=== PATIENT | male | born 1980 | race Caucasian/White ===

== ENCOUNTER 2016-08-16 01:05 | Outpatient (CLI) ==
[2016-08-16 01:22] VITALS: BMI 15.6
== END 2016-08-16 01:06 | disposition home or self-care (01) ==
LOC: AMBL 01:05
PROVIDERS: ATTEND Emergency Medicine
DX: R10.9 Unspecified abdominal pain (principal); R11.10 Vomiting, unspecified; K35.80 Unspecified acute appendicitis

== ENCOUNTER 2016-08-16 01:14 | Emergency (ER) ==
[2016-08-16] MEDS ORDERED: SODIUM CHLORIDE 1,000 ML IV STA ×3 (01:16→01:17)
[2016-08-16 01:22] VITALS: BP 163/105; TEMP 97.7; BMI 15.6
[2016-08-16] MEDS ORDERED: PHENERGAN 25 MG/ML VIAL 25 MG in SODIUM CHLORIDE 50 ML IV STA (01:22)
[2016-08-16 01:37] LABS: BASOPHILS # (AUTO) 0.1 K/uL (0-0.2); BASOPHILS % (AUTO) 0.7 % (0.0-3.0); HEMATOCRIT 34.1 % (42.0-52.0); HEMOGLOBIN 11.5 g/dl (14.0-18.0); IMMATURE GRANULOCYTE % (AUTO) 0.9 % (0.0-5.0); LYMPHOCYTES # (AUTO) 1.1 K/uL (0.60-3.4); LYMPHOCYTES % (AUTO) 10.4 (10.0-50.0); MEAN CORPUSCULAR HEMOGLOBIN 27.6 pg (27.0-31.0); MEAN CORPUSCULAR HGB CONC 33.7 (31.8-35.4); MONOCYTES # (AUTO) 0.6 K/uL (0.4-2.0); MONOCYTES % (AUTO) 6.2 (0-10); NEUTROPHILS # (AUTO) 8.3 K/ul (2.0-6.9); NEUTROPHILS % (AUTO) 81.8; PLATELET COUNT 248 10^3/uL (140-440); RED BLOOD COUNT 4.16 10^6/ul (4.70-6.10); WHITE BLOOD COUNT 10.17 K/ul (4.2-10.2)
[2016-08-16] MEDS ORDERED: PHENERGAN 25 MG/ML VIAL ONE (01:54)
[2016-08-16 02:03] LABS: ALANINE AMINOTRANSFERASE 12 U/L (12-78); ALBUMIN 4.2 g/dL (3.4-5.0); ALBUMIN/GLOBULIN RATIO 1.14; ALKALINE PHOSPHATASE 95 U/L (50-136); AMYLASE 36 U/L (25-115); ANION GAP 15.7; ASPARTATE AMINO TRANSFERASE 19 U/L (15-37); BLOOD UREA NITROGEN 25 mg/dL (7-18); BUN/CREATININE RATIO 29.76; CALCIUM 9.7 mg/dL (8.2-10.2); CARBON DIOXIDE 26 mmol/L (21-32); CHLORIDE 102 mmol/L (98-107); CREATINE KINASE 83 U/L; CREATININE 0.84 mg/dL (0.60-1.10); GLUCOSE 129 mg/dL (70-100); POTASSIUM 3.7 mmol/L (3.5-5.1); SODIUM 140 mmol/L (136-145); TOTAL PROTEIN 7.9 g/dL (6.4-8.2)
[2016-08-16 02:04] LABS: LIPASE 5 U/L (8-78)
[2016-08-16 02:06] LABS: ERYTHROCYTE SEDIMENTATION RATE 41 mm/hr (0-15); ESR INTERNAL QC INTERNAL QC VALID
[2016-08-16 02:19] LABS: FLU INTERNAL QC INTERNAL QC VALID; RAPID FLU A NEGATIVE (NEGATIVE); RAPID FLU B NEGATIVE (NEGATIVE)
--- NOTE | 2016-08-16 03:02 | CT ---
EXAM: CT abdomen pelvis without and with intravenous contrast 08/16/2016. Sagittal and coronal ref ormatted images obtained HISTORY: Abdominal pain and vomiting COMPARISON: None. FINDINGS: Diffuse hepatic steatosis. The liver, gallbladder, adrenal glands and kidneys show no ac sonny abnormality. The spleen and pancreas show no acute process. There is no evidence of bowel obstruction. The appendix is dilated up to approximately 9 mm diameter. Appendix is best seen on coronal series image 26. There is prominent mucosal enhancement with surrounding stranding / edema. The appendix is fluid-filled. This is most compatible with acute appendicitis. Unremarkable urinary bladder. There is no free air or free fluid. Fluid-filled distal small bowel likely relates to ileus. IMPRESSION: Findings most compatible with acute appendicitis as discussed above. Critical FINDINGS: I personally discussed these findings with Dr. Osei, 08/16/2016, 2:57 a.m
--- NOTE | 2016-08-16 03:05 | ED.PDOC ---
General ED Provider: Dr. SALOMÓN PEARSON-ER Chief Complaint: Abdominal Pain Stated Complaint: im throwingup and my belly hurts Time Seen by Physician: 01:20 Mode of Arrival: Ambulance Information Source: Patient Exam Limitations: No limitations Primary Care Provider: MARIAM ESCAMILLA Nursing and Triage Documentation Reviewed and Agree: Yes GI Complaint Exam - Abdominal Pain Complaint/Exam Onset: Gradual Duration: a few hours Symptoms Are: Still present Timing: Constant Initial Severity: Mild Current Severity: Moderate Location of Pain: Diffuse Character: Reports: Dull, Aching Aggravating: Reports: None Alleviating: Reports: None Associated Signs and Symptoms: Reports: Nausea, Vomiting. Denies: Diaphoresis, Fever, Cough, Chest pain, Dizziness, Back pain, Constipation, Blood in stool, Dysuria, Urinary frequency, Decreased urine output, Decreased appetite, Discharge AAA Risk Factors: Reports: None Cardiac Risk Factors: Reports: None Testicular Torsion Risk Factors: Reports: None Surgical Obstruction Risk Factors: Reports: None Related Surgical History: Reports: None Differential Diagnoses: Appendicitis, Bowel Obstruction, Constipation, Pancreatitis Quality Indicator For Non-Traumatic Chest Pain/Syncope: EKG Performed Review of Systems - Review Of Systems Constitutional: Reports: No symptoms Eyes: Reports: No symptoms Ears, Nose, Mouth, Throat: Reports: No symptoms Respiratory: Reports: No symptoms Cardiac: Reports: No symptoms GI: Reports: Abdominal pain, Nausea, Vomiting : Reports: No symptoms Musculoskeletal: Reports: No symptoms Skin: Reports: No symptoms Neurological: Reports: No symptoms Endocrine: Reports: No symptoms Hematologic/Lymphatic: Reports: No symptoms All Other Systems: Reviewed and Negative Past Medical History - Past Medical History Previously Healthy: Yes Endocrine: Reports: None, Hyperthyroid (OLD RECORD) Cardiovascular: Reports: None Respiratory: Reports: None Hematological: Reports: None Gastrointestinal: Reports: None Genitourinary: Reports: None, Other (OLD RECORD) Neuro/Psych: Reports: None, Anxiety (OLD RECORD), Depression (OLD RECORD) Musculoskeletal: Reports: None Cancer: Reports: None - Surgical History General Surgical History: Reports: Orthopedic (hand surgery), Unknown - Family History Family History: Reports: Unknown - Social History Smoking Status: Former smoker, Vaping Hx Substance Use: Yes (clean 3 years) Alcohol Screening: None Lives: With family - Immunizations Tetanus Shot up to Date: Yes Physical Exam - Physical Exam Appearance: Well-appearing, No pain distress, Well-nourished Pain Distress: Moderate Eyes: JANE, EOMI, Conjunctiva clear ENT: Ears normal, Nose normal, Oropharynx normal Neck: Supple Respiratory: Airway patent, Breath sounds clear, Breath sounds equal, Respirations nonlabored Cardiovascular: RRR, Tachycardia GI/: Soft, Tender Musculoskeletal: Normal strength, ROM intact, No edema, No calf tenderness Skin: Warm, Dry, Normal color Neurological: Sensation intact Psychiatric: Affect appropriate, Mood appropriate Interpretation - Radiology Interpretation Radiology Interpretation By: Radiologist Radiology Results: Positive Exam Interpreted: CT Scan Xray Comments: "findings compatible with acute appendicitis" - EKG Interpretation Time of EKG #1: 03:05 Rate: Normal Rhythm: Sinus Ectopy: None [place]: NL ST Segment: Normal Physician Notification - Case Discussed Physician Notified: dr post Time of Notification: 03:45 Critical Care Note - Critical Care Note Total Time (mins): 0 Course - Course Hematology/Chemistry: 08/16/16 01:35 08/16/16 01:35 Orders, Labs, Meds: Lab Review 08/16/16 08/16/16 08/16/16 01:30 01:35 03:25 WBC 10.17 RBC 4.16 L Hgb 11.5 L Hct 34.1 L MCV 82.0 MCH 27.6 MCHC 33.7 RDW Coeff of Dilma 14.2 Plt Count 248 Immature Gran % (Auto) 0.9 Neut % (Auto) 81.8 Lymph % (Auto) 10.4 [place] % (Auto) 6.2 Eos % (Auto) 0.0 Baso % (Auto) 0.7 Immature Gran # (Auto) 0.1 Neut # 8.3 H Lymph # 1.1 [place] # 0.6 Eos # 0.0 Baso # 0.1 ESR 41 H Sodium 140 Potassium 3.7 Chloride 102 Carbon Dioxide 26 Anion Gap 15.7 BUN 25 H Creatinine 0.84 Estimated GFR (MDRD) 103.00 BUN/Creatinine Ratio 29.76 Glucose 129 H Calcium 9.7 Total Bilirubin 1.40 H AST 19 ALT 12 Alkaline Phosphatase 95 Total Creatine Kinase 83 Troponin I < 0.0100 Total Protein 7.9 Albumin 4.2 Globulin 3.7 Albumin/Globulin Ratio 1.14 Amylase 36 Lipase 5 L Urine Color Yellow Urine Clarity Cloudy Urine pH 8.5 Ur Specific Winder 1.015 Urine Protein Trace Urine Glucose (UA) Negative Urine Ketones 2+ Urine Blood Negative Urine Nitrite Negative Urine Bilirubin 1+ Urine Urobilinogen 1.0 Ur Leukocyte Esterase Negative Ur Squamous Epith Cells Not present Amorphous Sediment 1+ Urine Bacteria 1+ Urine Yeast Trace Influenza A (Rapid) Negative Influenza B (Rapid) Negative Orders Category Date Time Status EKG-(ED ONLY) Stat CARDIO 08/16/16 01:15 Completed NPO REMINDER: IMAGING ONCE CARE 08/16/16 01:17 Completed IV [ED IV/MEDIPORT/POWERPORT] .ONCE EMERGENCY 08/16/16 01:16 Active AMYLASE Stat LAB 08/16/16 01:35 Completed CBC W/ AUTO DIFF Stat LAB 08/16/16 01:35 Completed COMPREHENSIVE METABOLIC PANEL Stat LAB 08/16/16 01:35 Completed CREATINE KINASE Stat LAB 08/16/16 01:35 Completed ESR Stat LAB 08/16/16 01:35 Completed LIPASE Stat LAB 08/16/16 01:35 Completed MOLECULAR GROUP A STREP Stat LAB 08/16/16 01:30 Results RAPID FLU A/B Stat LAB 08/16/16 01:30 Completed STREP SCREEN Stat LAB 08/16/16 01:30 Results TROPONIN I Stat LAB 08/16/16 01:35 Completed URINALYSIS C & S IF INDICATED Stat LAB 08/16/16 03:25 Completed URINE CULTURE Routine LAB 08/16/16 03:39 Received 0.9 % Sodium Chloride [Saline Flush] MEDS 08/16/16 01:16 Ordered 1 syr IVF PRN PRN Promethazine HCl [Phenergan 25 mg/ml Vial] MEDS 08/16/16 01:54 Discontinued 25 mg .ROUTE .STK-MED ONE Promethazine HCl [Phenergan 25 mg/ml Vial] 25 mg MEDS 08/16/16 01:22 Discontinued 0.9 % Sodium Chloride [Sodium Chloride] 50 ml IV ONCE Sodium Chloride 0.9% [Sodium Chloride] 1,000 ml MEDS 08/16/16 01:17 Active IV 100 mls/hr Sodium Chloride 0.9% [Sodium Chloride] 1,000 ml MEDS 08/16/16 01:16 Discontinued IV BOLUS Sodium Chloride 0.9% [Sodium Chloride] 1,000 ml MEDS 08/16/16 01:[address] ABDOMEN/PELVIS W/WO CONTRAS Stat RADS 08/16/16 01:17 Completed Medications Generic Name Dose Route Start Last Admin Trade Name Freq PRN Reason Stop Dose Admin Sodium Chloride 1,000 mls @ 100 mls/hr 08/16/16 01:17 Sodium Chloride IV 08/16/16 11:16 .Q10H STA Sodium Chloride 1 syr 08/16/16 01:16 08/16/16 02:00 Saline Flush IVF 1 syr PRN PRN Administration To flush IV Discontinued Medications Generic Name Dose Route Start Last Admin Trade Name Freq PRN Reason Stop Dose Admin Sodium Chloride 1,000 mls @ 1,000 mls/hr 08/16/16 01:16 08/16/16 01:57 Sodium Chloride IV 08/16/16 02:15 1,000 mls/hr BOLUS STA Administration Sodium Chloride 1,000 mls @ 1,000 mls/hr 08/16/16 01:16 Sodium Chloride IV 08/16/16 02:15 BOLUS STA Promethazine HCl 25 mg/ Sodium 51 mls @ 75 mls/hr 08/16/16 01:22 08/16/16 01: 57 Chloride IV 08/16/16 02:02 75 mls/hr ONCE STA Administration Vital Signs: Temp Pulse Resp BP Pulse Ox 08/16/16 01:15 97.7 F 73 16 163/105 H 99 Departure - Departure Time of Disposition: 03:45 Disposition: TSF SHORT-TRM HOSP Discharge Problem: Appendicitis Qualifiers: Appendicitis type: acute appendicitis Acute appendicitis type: unspecified acute appendicitis type Qualifier Code: (K35.80) Unspecified acute appendicitis Instructions: Abdominal Pain (ED) Condition: Good Pt referred to PMD for follow-up: No Allergies/Adverse Reactions: Allergies No Known Allergies Allergy (Verified 12/05/15 17:49) Home Medications: Ambulatory Orders Clonazepam [Klonopin] 1 mg PO TID 12/07/12 Fluoxetine HCl [Prozac] 40 mg PO DAILY 12/07/12 Buprenorphine HCl/Naloxone HCl [Suboxone 8 mg-2 mg Sl Film] 16 mg PO DAILY 12/04 Transfer Form Completed: Yes Disposition Discussed With: Patient, Family
[2016-08-16 03:31] LABS: BILIRUBIN,URINE 1+ (NEGATIVE); KETONES,URINE 2+ (NEGATIVE); LEUKOCYTE ESTERASE ,URINE Negative (NEGATIVE); NITRITE,URINE Negative (NEGATIVE); PH,URINE 8.5 (5-9); PROTEIN,URINE Trace (NEGATIVE); URINE, BLOOD Negative (NEGATIVE)
[2016-08-16 03:38] LABS: ADD URINE MICROSCOPIC YES
[2016-08-16 03:39] LABS: BACTERIA,URINE 1+ (NOT PRESENT)
[2016-08-16] MEDS ORDERED: ZOFRAN 4 MG/2 ML IVP STA (03:47)
== END 2016-08-16 04:14 | disposition short-term general hospital (02) ==
LOC: ED 01:14
DX: K35.80 Unspecified acute appendicitis (principal)
CPT/HCPCS: 36415; 80053; 81001; 82150; 82550; 83690; 84484; 85025; 85651; 87086; 87651; 87804; 87880; 93005; 93010; 96361; 96365; 96375; 99285

== ENCOUNTER 2016-08-22 16:42 | Emergency (ER) ==
[2016-08-22 16:55] VITALS: BP 112/71; TEMP 98.1; BMI 14.8
--- NOTE | 2016-08-22 17:03 | ED.PDOC ---
General ED Provider: Dr. LORI LAWSON Chief Complaint: Abdominal Pain Stated Complaint: Patient had surgery at [facility] 08-15-16, he is not feeling good, minimal bowel ovements. hurting more now. Time Seen by Physician: 17:01 Mode of Arrival: Walk-In Information Source: Patient Primary Care Provider: MARIAM ESCAMILLA Nursing and Triage Documentation Reviewed and Agree: Yes GI Complaint Exam - Abdominal Pain Complaint/Exam Onset: Gradual Symptoms Are: Still present Timing: Constant Initial Severity: Moderate Current Severity: Moderate Location of Pain: Discrete Character: Reports: Dull, Aching Aggravating: Reports: Movement Alleviating: Reports: None Associated Signs and Symptoms: Reports: Decreased appetite, Nausea. Denies: Diaphoresis, Fever, Cough, Chest pain, Dizziness, Back pain, Constipation, Blood in stool, Dysuria, Urinary frequency, Decreased urine output, Discharge, Vomiting, Diarrhea, Decreased activity AAA Risk Factors: Reports: None Cardiac Risk Factors: Reports: None Testicular Torsion Risk Factors: Reports: None Surgical Obstruction Risk Factors: Reports: None Related Surgical History: Reports: Appendectomy (08-15-16) Abdominal Findings: Absent: Pulsatile mass, Abdominal distention Differential Diagnoses: Bowel Obstruction, Constipation Review of Systems - Review Of Systems Constitutional: Reports: Malaise, Weakness Eyes: Reports: No symptoms Ears, Nose, Mouth, Throat: Reports: No symptoms Respiratory: Reports: No symptoms Cardiac: Reports: No symptoms GI: Reports: Abdominal pain : Reports: No symptoms Musculoskeletal: Reports: No symptoms Skin: Reports: No symptoms Neurological: Reports: No symptoms Endocrine: Reports: No symptoms Hematologic/Lymphatic: Reports: No symptoms All Other Systems: Reviewed and Negative Past Medical History - Past Medical History Previously Healthy: Yes Endocrine: Reports: None, Hyperthyroid (OLD RECORD) Cardiovascular: Reports: None Respiratory: Reports: None Hematological: Reports: None Gastrointestinal: Reports: None Genitourinary: Reports: None, Other (OLD RECORD) Neuro/Psych: Reports: None, Anxiety (OLD RECORD), Depression (OLD RECORD) Musculoskeletal: Reports: None Cancer: Reports: None - Surgical History General Surgical History: Reports: Appendectomy (08-15-16 [facility]), Orthopedic (hand surgery), Unknown - Family History Family History: Reports: Unknown - Social History Smoking Status: Former smoker, Vaping Hx Substance Use: Yes (clean 3 years) Alcohol Screening: None Physical Exam - Physical Exam Appearance: Ill-appearing, Thin Eyes: JANE, EOMI, Conjunctiva clear ENT: Ears normal, Nose normal, Oropharynx normal Respiratory: Airway patent, Breath sounds clear, Breath sounds equal, Respirations nonlabored Cardiovascular: RRR, Pulses normal, No rub, No murmur GI/: Soft, Tender, Bowel sounds hypoactive Musculoskeletal: Normal strength, ROM intact, No edema, No calf tenderness Skin: Warm, Dry, Normal color Neurological: Sensation intact, Motor intact, Reflexes intact, Cranial nerves intact, Alert, Oriented Psychiatric: Affect appropriate, Mood appropriate Interpretation - Radiology Interpretation Radiology Interpretation By: Radiologist Radiology Results: Positive Exam Interpreted: CT Scan Physician Notification - Case Discussed Time of Notification: 18:46 (DR ZAMUDIO) Critical Care Note - Critical Care Note Total Time (mins): 0 Course - Course Hematology/Chemistry: 08/22/16 17:10 08/22/16 17:10 Orders, Labs, Meds: Lab Review 08/22/16 17:10 WBC 14.83 H RBC 2.96 L Hgb 8.4 L Hct 24.6 L MCV 83.1 MCH 28.4 MCHC 34.1 RDW Coeff of Dilma 13.8 Plt Count 332 Immature Gran % (Auto) 0.7 Neut % (Auto) 83.0 Lymph % (Auto) 6.3 L [place] % (Auto) 9.6 Eos % (Auto) 0.3 Baso % (Auto) 0.1 Immature Gran # (Auto) 0.1 Neut # 12.3 H Lymph # 0.9 [place] # 1.4 Eos # 0.0 Baso # 0.0 Sodium 137 Potassium 4.1 Chloride 99 Carbon Dioxide 27 Anion Gap 15.1 BUN 19 H Creatinine 0.71 Estimated GFR (MDRD) 126.00 BUN/Creatinine Ratio 26.76 Glucose 161 H Calcium 9.0 Total Bilirubin 1.86 H AST 13 L ALT 9 L Alkaline Phosphatase 77 Total Protein 7.0 Albumin 3.0 L Globulin 4.0 Albumin/Globulin Ratio 0.75 Amylase 23 L Lipase 8 Orders Category Date Time Status ED IV/MEDIPORT/POWERPORT .ONCE EMERGENCY 08/22/16 17:38 Active AMYLASE Stat LAB 08/22/16 17:10 Completed CBC W/ AUTO DIFF Stat LAB 08/22/16 17:10 Completed COMPREHENSIVE METABOLIC PANEL Stat LAB 08/22/16 17:10 Completed LIPASE Stat LAB 08/22/16 17:10 Completed 0.9 % Sodium Chloride [Saline Flush] MEDS 08/22/16 17:38 Ordered 1 syr IVF PRN PRN Meperidine HCl/Pf [Demerol 25 mg/ml Syringe] MEDS 08/22/16 17:41 Discontinued 25 mg IVP ONCE STA Ondansetron HCl/Pf [Zofran 4 mg/2 ml] MEDS 08/22/16 17:41 Discontinued 4 mg IVP ONCE STA Piperacillin Sodium/Tazobactam [Zosyn 3.375 gm] 3.375 MEDS 08/22/16 17:38 Discontinued gm 0.9 % Sodium Chloride [Sodium Chloride] [address] ABDOMEN/PELVIS WO CONTRAST Stat RADS 08/22/16 16:58 Completed Medications Generic Name Dose Route Start Last Admin Trade Name Freq PRN Reason Stop Dose Admin Sodium Chloride 1 syr 08/22/16 17:38 08/22/16 18:12 Saline Flush IVF 1 syr PRN PRN Administration To flush IV Discontinued Medications Generic Name Dose Route Start Last Admin Trade Name Freq PRN Reason Stop Dose Admin Piperacillin Sod/Tazobactam 100 mls @ 100 mls/hr 08/22/16 17:38 08/22/16 18: 14 Sod 3.375 gm/ Sodium Chloride IV 08/22/16 18:37 100 mls/hr ONCE STA Administration Meperidine HCl 25 mg 08/22/16 17:41 08/22/16 18:09 Demerol 25 Mg/Ml Syringe IVP 08/22/16 17:42 25 mg ONCE STA Administration Ondansetron HCl 4 mg 08/22/16 17:41 08/22/16 18:11 Zofran 4 Mg/2 Ml IVP 08/22/16 17:42 4 mg ONCE STA Administration Vital Signs: Temp Pulse Resp BP Pulse Ox 08/22/16 16:43 98.1 F 101 H 20 112/71 94 L Departure - Departure Time of Disposition: 18:46 Disposition: TSF OTHER Discharge Problem: Post-op pain Postoperative intra-abdominal abscess Qualifiers: Encounter type: initial encounter Qualifier Code: (T81.4XXA) Infection following a procedure, initial encounter Discharge Problem: (Ruled Out): Anemia Instructions: Abdominal Pain (ED) Condition: Stable Pt referred to PMD for follow-up: Yes Additional Instructions: INCREASE HYDRATION FREQUENT SMALL MEALS KEEP F/U WITH SURGEON SCHEDULED. Prescriptions: Ondansetron HCl [Zofran] 4 mg PO TID #14 tablet Allergies/Adverse Reactions: Allergies No Known Allergies Allergy (Verified 08/22/16 16:51) Home Medications: Ambulatory Orders Clonazepam [Klonopin] 1 mg PO TID 12/07/12 Fluoxetine HCl [Prozac] 40 mg PO DAILY 12/07/12 Buprenorphine HCl/Naloxone HCl [Suboxone 8 mg-2 mg Sl Film] 16 mg PO DAILY 12/04 Ketorolac Tromethamine [Toradol] 10 mg PO Q6HR PRN 08/22/16 Ondansetron HCl [Zofran] 4 mg PO TID #14 tablet 08/22/16 Transfer Form Completed: Yes Disposition Discussed With: Patient
[2016-08-22 17:24] LABS: BASOPHILS % (AUTO) 0.1 % (0.0-3.0); EOSINOPHILS % (AUTO) 0.3 % (0.0-7.0); HEMATOCRIT 24.6 % (42.0-52.0); HEMOGLOBIN 8.4 g/dl (14.0-18.0); IMMATURE GRANULOCYTE % (AUTO) 0.7 % (0.0-5.0); LYMPHOCYTES # (AUTO) 0.9 K/uL (0.60-3.4); LYMPHOCYTES % (AUTO) 6.3 (10.0-50.0); MEAN CORPUSCULAR HEMOGLOBIN 28.4 pg (27.0-31.0); MEAN CORPUSCULAR HGB CONC 34.1 (31.8-35.4); MEAN CORPUSCULAR VOLUME 83.1 fl (80.0-94.0); MONOCYTES # (AUTO) 1.4 K/uL (0.4-2.0); MONOCYTES % (AUTO) 9.6 (0-10); NEUTROPHILS # (AUTO) 12.3 K/ul (2.0-6.9); PLATELET COUNT 332 10^3/uL (140-440); RED BLOOD COUNT 2.96 10^6/ul (4.70-6.10); WHITE BLOOD COUNT 14.83 K/ul (4.2-10.2)
--- NOTE | 2016-08-22 17:31 | CT ---
EXAM: Noncontrast CT of the abdomen and pelvis. HISTORY: Post appendectomy. Abdominal pain. COMPARISON: 08/16/2016 TECHNIQUE: Contiguous axial images at 3 mm intervals were obtained from lung bases through the pelv is. No contrast was given. Coronal reformats were reviewed. FINDINGS: The study is limited without contrast. CHEST: The lung bases show no lobar consolidation or effusion. The heart size is within normal schwartz its. ABDOMEN: Evaluation of the soft tissue organs is limited without contrast. LIVER: Noncontrast images of the liver show no solid mass lesion or intrahepatic ductal dilatation. BILIARY: The gallbladder is normally distended. No gallstones are noted. No pericholecystic fluid or inflammation. The common bile duct is normal. SPLEEN: The spleen is unremarkable. PANCREAS: The pancreas shows no mass lesion or peripancreatic inflammation. ADRENAL GLANDS: The adrenal glands are normal. RENAL: The kidneys show no hydronephrosis or nephrolithiasis. There are no obstructing ureteral st ones. No solid mass lesions are identified. RETROPERITONEUM: The aorta is unopacified. No aneurysm is identified. No aortic calcifications ar e seen. There is no retroperitoneal or mesenteric adenopathy. BOWEL: There are postoperative changes of an appendectomy. There are clips in the right lower quadr ant. There is fluid density extending from the right lower quadrant into the pelvis. There is a sm all anterior fluid collection measuring eight point a by 3.0 cm. There is a second larger fluid col lection posteriorly measuring 10.6 x 11.0 cm. These may be connected. Evaluation is limited withou t IV and enteric contrast. This fluid collection displaces the rectum posteriorly. The fluid densi ty is intermediate. PELVIS: BLADDER: The bladder is well distended. The bladder is displaced anteriorly.. GENITOURINARY STRUCTURES: The prostate is unremarkable. OSSEOUS STRUCTURES: The osseous structures are normal for age. IMPRESSION 1. Limited study without contrast. 2. Post appendectomy. There is a fluid collection is seen in the right lower quadrant into the pel vis. The fluid collection measures up to 11 cm with intermediate density. Findings are consistent with abscess. Postoperative fluid collection and/or blood cannot be excluded. Evaluation is limited without contrast. Recommend CT with IV and water soluble rectal contrast.
[2016-08-22 17:39] LABS: ALBUMIN/GLOBULIN RATIO 0.75; ANION GAP 15.1; BILIRUBIN,TOTAL 1.86 mg/dL (0.00-1.20); BUN/CREATININE RATIO 26.76; CREATININE 0.71 mg/dL (0.60-1.10); POTASSIUM 4.1 mmol/L (3.5-5.1)
[2016-08-22] MEDS: DEMEROL 25 MG/ML SYRINGE IVP STA (18:09)
[2016-08-22] MEDS: ZOFRAN 4 MG/2 ML IVP STA (18:11)
[2016-08-22] MEDS: ZOSYN 3.375 GM 3.375 GM in SODIUM CHLORIDE 100 ML IV STA (18:14)
== END 2016-08-22 19:25 | disposition short-term general hospital (02) ==
LOC: ED 16:42
DX: T81.4XXA Infection following a procedure, initial encounter (principal); G89.18 Other acute postprocedural pain; R10.9 Unspecified abdominal pain; Z90.89 Acquired absence of other organs; Z79.899 Other long term (current) drug therapy; F17.290 Nicotine dependence, other tobacco product, uncomplicated
CPT/HCPCS: 36415; 80053; 82150; 83690; 85025; 96365; 96375; 99285

== ENCOUNTER 2016-08-22 19:30 | Outpatient (CLI) ==
[2016-08-22 16:55] VITALS: BMI 14.8
== END 2016-08-22 19:31 ==
LOC: AMBL 19:30
PROVIDERS: ATTEND Family Medicine
DX: R10.9 Unspecified abdominal pain (principal); R18.8 Other ascites; Z98.890 Other specified postprocedural states